=== PATIENT | male | born 1940 | race Caucasian/White ===

== ENCOUNTER → 2018-05-16 | Outpatient (CLI) | payer MEDICARE ==
[~2018-05-16] MED LIST: B COMPLETE1 EACH PO; DICLOFENAC SODI75 M7 PO; FISH OIL 1,2001 EACH PO; LIPITOR10 MG PO; NASACORT A55 MCG/Act NS; PROSCAR5 M1 PO; TERAZOSIN HCL10 M1 PO; VITAMIN D32000 IU PO
== END | disposition home or self-care (01) ==
LOC: CARD 01:33
DX: I35.1 Nonrheumatic aortic (valve) insufficiency (principal); I48.91 Unspecified atrial fibrillation; E78.2 Mixed hyperlipidemia; I10 Essential (primary) hypertension; Z95.1 Presence of aortocoronary bypass graft; I97.89 Other postprocedural complications and disorders of the circulatory system, not elsewhere classified